=== PATIENT | male | born 1970 | race African-American/Black ===

== ENCOUNTER 2018-08-23 19:31 | Emergency (ER) | payer SELFPAY ==
--- NOTE | 2018-08-23 22:03 | RAD ---
LEFT ELBOW FOUR VIEWS: HISTORY: Drug by car with left arm pain. COMPARISON: None. FINDINGS: Four views of the left elbow show no evidence of acute fracture or dislocation. No elbow effusion is seen. No degenerative changes are present. IMPRESSION: No evidence of acute osseous abnormality. POS: C
[2018-08-23] MEDS ORDERED: Bacitracin 1 PK ONE (22:30)
== END 2018-08-23 22:48 | disposition home or self-care (01) ==
LOC: ERS 19:31
DX: S40.021A Contusion of right upper arm, initial encounter (principal); Z79.899 Other long term (current) drug therapy; V89.2XXA Person injured in unspecified motor-vehicle accident, traffic, initial encounter

== ENCOUNTER 2020-01-03 16:46 | Observation (INO) | payer OTHER, SELFPAY ==
[~2020-01-03 16:46] MED LIST: Iopamidol-370 76% 500 ML 1 ML ONE
[2020-01-03 18:03] LABS: #Eosinphils 0.2 thou/uL (0.0-0.7); #Lymphocytes 2.5 thou/uL (1.20-3.40); #Monocytes 0.7 thou/uL (0.11-0.59); #Neutrophils 3.9 thou/uL (1.40-6.50); %Basophils 0.6 % (0.0-1.0); %Eosinophils 2.9 % (0.0-10.0); %Monocytes 9.6 % (0.0-10.0); Hemoglobin 16.2 g/dL (14.0-18.0); Mean Corpuscular HGB CONC 31.8 g/dL (32.0-36.0); Mean Corpuscular Hemoglobin 27.4 pg (27.0-31.0); Mean Corpuscular Volume 86.3 fL (78.0-98.0); Mean Platelet Volume 7.5 fL (7.4-10.4); Platelet Count 320 thou/uL (130-400); Red Blood Cell (RBC) Count 5.92 mill/uL (4.70-6.10); White Blood Cell (WBC) Count 7.4 thou/uL (4.8-10.8)
[2020-01-03 18:23] LABS: ALT (SGPT) 14 U/L (8-55); AST (SGOT) 18 U/L (5-34); Alkaline Phosphatase 65 U/L (40-110); Anion Gap 12 mmol/L (10-20); BUN (Urea Nitrogen) 12 mg/dL (8.9-20.6); Bilirubin, Total 1.2 mg/dL (0.2-1.2); CK (CPK) 195 U/L (30-200); Calc. Creatinine Clearance 0 mL/min (70-130); Calcium 9.3 mg/dL (7.8-10.44); Carbon Dioxide 28 mmol/L (22-29); Chloride 103 mmol/L (98-107); Estimated GFR-MDRD 70; Globulin 4.1 g/dL (2.4-3.5); Glucose 92 mg/dL (70-105); Potassium 4.2 mmol/L (3.5-5.1); Protein, Total 8.1 g/dL (6.0-8.3); Sodium 139 mmol/L (136-145)
--- NOTE | 2020-01-03 18:33 | RAD ---
PORTABLE CHEST 01/03/20 HISTORY: Shortness of breath. Lungs are clear. Heart and mediastinum appear normal. IMPRESSION: No acute process. POS: AGW
--- NOTE | 2020-01-03 18:43 | CT ---
CT ANGIOGRAM THORAX WITH CONTRAST: (CTA pulmonary angiogram) DATE: 01/03/2020 HISTORY: 49-year-old male with dyspnea TECHNIQUE: IV injection of iodinated contrast. Scan acquisition timing attempted to coincide with iodinated contrast bolus reaching maximal density in pulmonary arteries. 3-D MIP reconstructions. FINDINGS: Pulmonary thromboembolism: None. Lungs: No consolidation or edema. Tiny 5 x 3 mm right middle lobe pulmonary nodule. Otherwise lungs a re clear. Pneumothorax: None. Pleural effusion: None. Heart: No cardiomegaly or pericardial effusion. Thoracic aorta: No aneurysm or dissection. Mediastinum: A very large number of tiny soft tissue density nodules ranging in size from approximate ly 2 mm up to 8 mm, throughout the prevascular space. IMPRESSION: 1. No pulmonary thromboembolism. 2. An unusual finding of innumerable tiny nodules throughout the prevascular space of the anterior me diastinum of unknown etiology and significance. The appearance is not typical for lymphadenopathy or thymic rebound tissue. Recommend follow-up chest CT in 3-6 months.
[2020-01-03 18:45] LABS: CKMB 2.5 ng/mL (0-6.6)
[2020-01-03] MEDS ORDERED: Ondansetron ODT 4 MG TAB SL PRN (22:15)
[2020-01-03] MEDS ORDERED: Ondansetron PF 4 MG/2 ML Vial IVP PRN (22:15)
[2020-01-03] MEDS ORDERED: Acetaminophen 325 MG TAB PO PRN ×2 (22:15→22:51)
[2020-01-03 22:30] VITALS: BMI 36.7
[2020-01-03] MEDS ORDERED: Aspirin 325 MG TAB PO SCH (22:30)
[2020-01-03] MEDS ORDERED: Acetaminophen 650 MG Suppository PR PRN (22:51)
--- NOTE | 2020-01-03 23:09 | PDOC.HHP ---
Hospitalist HPI - History of Present Illness History of Present Illness: ADMISSION DATE: 01/03/2020 TIME OF ASSESSMENT: 2200 PRIMARY CARE PHYSICIAN: None CHIEF COMPLAINT: Shortness of breath HPI: Patient is a 49-year-old gentleman who presents to the emergency department with complaints of shortness of breath on exertion for the last 3 weeks. He reports difficulty with orthopnea and at times wakes up feeling as if he cannot catch his breath. He is more comfortable when his head is elevated. Denies any cough or hemoptysis. No chest pain, palpitations or lower extremity swelling. No history of asthma or COPD. Denies any tobacco use. Has not had any symptoms like this in the past. ROS: Denies having any fevers chills or sweats. No nausea or vomiting. Denies any abdominal pain or cramping. No bowel changes or urinary symptoms. Reports a normal appetite. All other review systems apart from what is mentioned above in HPI is negative. ED COURSE: In the emergency department he had an EKG done which showed normal sinus rhythm. Heart rate 81. No ST changes or T wave abnormalities. He had a chest x-ray done which showed no acute process. CT angiogram of the chest was done showing no evidence of PE. He was incident ally found to have innumerable tiny nodules throughout the prevascular space of the anterior mediastinum of unknown etiology and significance. Per report the appearance is not typical for lymphadenopathy or thymic rebound tissue. Tiny 5 x 3 mm right middle lobe pulmonary nodule. Recommended follow-up chest CT in 3 to 6 months. Laboratory studies showed a normal full blood count. Sodium of 139, potassium 4.2, BUN 12, creatinine 1.32, GFR 70, glucose 92, LFTs normal. CK 195. CK-MB 2.5. Troponin 0 0.055. BNP negative. 325 mg of aspirin ordered in the emergency department but not given. He was given 1 L of normal saline. PAST MEDICAL HISTORY: 1. Hypertension 2. History of TIA PAST SURGICAL HISTORY: Left hand surgery SOCIAL HISTORY: Patient is still incarcerated. Denies any tobacco use alcohol consumption or drug use. FAMILY HISTORY: Noncontributory ALLERGIES: No known drug allergies CURRENT MEDICATIONS: None. - Exam General Appearance: NAD (resting comfortably in bed), awake alert General - other findings: VS: Temp 98.2, HR 89, RR 18, O2 sat 98% on room air, BP 144/100. Eye: PERRL, anicteric sclera ENT: normocephalic atraumatic, no oropharyngeal lesions, moist mucosa Neck: supple, no lymphadenopathy Heart: RRR, normal peripheral pulses Respiratory: CTAB, no wheezes, no rales, no ronchi, normal chest expansion Gastrointestinal: soft, non-tender, non-distended, normal bowel sounds, no guarding, no rigidity Extremities: no cyanosis, no clubbing, no edema Skin: normal turgor, no lesions, no rashes Neurological: cranial nerve grossly intact, normal sensation to touch, no weakness Musculoskeletal: normal tone, normal strength, no muscle wasting Psychiatric: normal affect, normal behavior, A&O x 3, oriented to person Hospitalist Results - Labs Result Diagrams: 01/03/20 17:44 01/03/20 17:44 Lab results: WBC 7.4 thou/uL (4.8-10.8) 01/03/20 17:44 Hgb 16.2 g/dL (14.0-18.0) 01/03/20 17:44 Hct 51.1 % (42.0-52.0) 01/03/20 17:44 MCV 86.3 fL (78.0-98.0) 01/03/20 17:44 Plt Count 320 thou/uL (130-400) 01/03/20 17:44 Neutrophils % 53.0 % (42.0-75.0) 01/03/20 17:44 Sodium 139 mmol/L (136-145) 01/03/20 17:44 Potassium 4.2 mmol/L (3.5-5.1) 01/03/20 17:44 Chloride 103 mmol/L (98-107) 01/03/20 17:44 Carbon Dioxide 28 mmol/L (22-29) 01/03/20 17:44 BUN 12 mg/dL (8.9-20.6) 01/03/20 17:44 Creatinine 1.32 mg/dL (0.7-1.3) H 01/03/20 17:44 Glucose 92 mg/dL (70-105) 01/03/20 17:44 Calcium 9.3 mg/dL (7.8-10.44) 01/03/20 17:44 Total Bilirubin 1.2 mg/dL (0.2-1.2) 01/03/20 17:44 AST 18 U/L (5-34) 01/03/20:44 ALT 14 U/L (8-55) 01/03/20 17:44 Alkaline Phosphatase 65 U/L (40-110) 01/03/20 17:44 Creatine Kinase 195 U/L (30-200) 01/03/20: CK-MB (CK-2) 2.5 ng/mL (0-6.6) 01/03/20:44 Troponin I 0.055 ng/mL (< 0.028) H 01/03/20:44 B-Natriuretic Peptide Less than 10.0 pg/mL (0-100) 01/03/20: Serum Total Protein 8.1 g/dL (6.0-8.3) 01/03/20: Albumin 4.0 g/dL (3.5-5.0) 01/03/20:44 Hospitalist H&P A/P - Problem (1) Shortness of breath on exertion Code(s): R06.02 - SHORTNESS OF BREATH Status: Acute Assessment and Plan: Monitor O2 sats. No sob at rest. BNP normal however patient is morbidly obese, therefore unreliable. Echo ordered. (2) Orthopnea Code(s): R06.01 - ORTHOPNEA Status: Acute Assessment and Plan: As mentioned Echo ordered to assess for possible HF. Would benefit from outpatient sleep study to assess for sleep apnea. (3) Elevated troponin Code(s): R77.8 - OTHER SPECIFIED ABNORMALITIES OF PLASMA PROTEINS Status: Acute Assessment and Plan: Continue to trend troponins. Denies any chest pain. Could be associated with HF. Continue aspirin. (4) ANTHONY (acute kidney injury) Code(s): N17.9 - ACUTE KIDNEY FAILURE, UNSPECIFIED Status: Acute Assessment and Plan: Has received 1 L of NS in the ED. Reassess renal function in AM. Continue gentle hydration, given CTA done. (5) Morbid obesity Code(s): E66.01 - MORBID (SEVERE) OBESITY DUE TO EXCESS CALORIES Status: Chronic (6) History of TIA (transient ischemic attack) Code(s): Z86.73 - PRSNL HX OF TIA (TIA), AND CEREB INFRC W/O RESID DEFICITS Status: Chronic Assessment and Plan: Continue Aspirin. (7) Abnormal CT of the chest Code(s): R93.89 - ABNORMAL FINDINGS ON DX IMAGING OF OTH BODY STRUCTURES Status: Acute Assessment and Plan: Innumerable nodules in prevascular space of anterior mediastinum. Repeat CT Chest 3-6 months. - Plan Plan: GI prophylaxis with Famotidine. DVT Prophylaxis: Lovenox 40 mg SC (Ambulatory of incarcerated therefore handcuffed and will not be mobile during admission) CODE STATUS FULL Case discussed with Dr. Rios who agrees with plan as above.
[2020-01-03 23:33] LABS: Troponin I 0.088 ng/mL (< 0.028)
[2020-01-04 02:29] LABS: #Eosinphils 0.3 thou/uL (0.0-0.7); #Lymphocytes 2.7 thou/uL (1.20-3.40); #Monocytes 0.6 thou/uL (0.11-0.59); %Basophils 0.4 % (0.0-1.0); %Eosinophils 4.2 % (0.0-10.0); %Lymphocytes 34.9 % (21.0-51.0); %Monocytes 7.7 % (0.0-10.0); %Neutrophils 52.8 % (42.0-75.0); Hemoglobin 14.7 g/dL (14.0-18.0); Mean Corpuscular HGB CONC 32.8 g/dL (32.0-36.0); Mean Corpuscular Hemoglobin 28.2 pg (27.0-31.0); Mean Corpuscular Volume 86.1 fL (78.0-98.0); Mean Platelet Volume 7.2 fL (7.4-10.4); Platelet Count 321 thou/uL (130-400); RBC Distribution Width 12.8 % (11.5-14.5); Red Blood Cell (RBC) Count 5.23 mill/uL (4.70-6.10); White Blood Cell (WBC) Count 7.6 thou/uL (4.8-10.8)
[2020-01-04 02:34] LABS: Troponin I 0.087 ng/mL (< 0.028)
[2020-01-04 02:36] LABS: Anion Gap 11 mmol/L (10-20); BUN (Urea Nitrogen) 12 mg/dL (8.9-20.6); Calc. Creatinine Clearance 92 mL/min (70-130); Calcium 8.7 mg/dL (7.8-10.44); Carbon Dioxide 26 mmol/L (22-29); Cardiac Risk 6.9 (Less than 4.5); Chloride 104 mmol/L (98-107); Cholesterol 200 mg/dl (< 200 Desired); Estimated GFR-MDRD 63; Glucose 128 mg/dL (70-105); HDL Cholesterol 29 mg/dL (>60 Neg Risk); LDL Cholesterol, Calculated 141 mg/dL; Potassium 3.9 mmol/L (3.5-5.1); Sodium 137 mmol/L (136-145); Triglycerides 149 mg/dL (Less than 150)
[2020-01-04 05:42] LABS: SARS-CoV-2 MS2 Positive; SARS-CoV-2 N Gene Negative; SARS-CoV-2 S Gene Negative; SARS-CoV-2 by NAA Not Detected (NotDetected); SARS-CoV-2 orf1ab Negative
[2020-01-04] MEDS ORDERED: Famotidine 20 MG TAB PO SCH (09:00)
[2020-01-04] MEDS ORDERED: Aspirin 81 mg Enteric Coated Tablet PO SCH (09:00)
[2020-01-04] MEDS ORDERED: FLU VACC QS2020-21(6MOS UP)/PF 60 MCG/0.5 ML SYRINGE IM ONE (09:00)
[2020-01-04] MEDS ORDERED: Regadenoson 0.4 MG/5 ML SYRINGE ONE (12:31)
[2020-01-04 12:52] VITALS: BP 142/79; TEMP 98
--- NOTE | 2020-01-04 13:33 | NM ---
Exam: [facility] cardiac stress with EF and wall motion HISTORY: Elevated troponin TECHNIQUE: Patient was ministered 10.10 mCi of technetium 9M sestamibi for stress imaging. Patient wa s administered 30.9 cm of technetium sestamibi for stress imaging. Cardiac gating is performed FINDINGS: Homogeneous distribution of the radiotracer in the left ventricle on the stress attenuation correctio n images. No reversibility or fixed defect 3 times a day is 1.26 End-diastolic volume is 98 mL End-systolic volume is 46 mL Cardiac gating: Normal wall motion and thickening. The degree % ejection fraction. IMPRESSION: No reversibility or fixed defect. 2. 53 % ejection fraction.
--- NOTE | 2020-01-04 14:32 | PDOC.DS.DS ---
Provider - Provider Date of Admission: 01/03/20 19:59 Date of Discharge: 01/04/20 Admitting Provider: Cheyenne Cuadra MD Primary Care Physician: NO PCP PROVIDER Course - Hospital Course Hospital Course: Discharge diagnosis: 1. Shortness of breath 2. no evidence of congestive heart failure 3. Nodules throughout the prevascular space of the anterior mediastinum of unknown etiology and significance. Radiologist recommends follow-up chest CT in 3 to 6 months. 4. Dyslipidemia 5. Chronic kidney disease stage III Hospital course: Mr. Horner is a pleasant 49-year-old gentleman who was admitted to the hospital on January 03, 2020 for shortness of breath on exertion. BNP was less than 10. 2D echocardiogram showed left ventricle ejection fraction of 60 to 65% and normal right ventricular size and function. He had mild mitral regurgitation and mild tricuspid regurgitation. He had indeterminate troponin. He underwent nuclear stress test, which showed left ventricle ejection fraction of 53% and no reversibility or fixed defect. CT angiogram of the chest showed nodule throughout the prevascular space of the anterior mediastinum of unknown etiology and significance. Radiologist recommended follow-up CT scan of the chest in 3 to 6 months. Patient did have elevated TID of 1.26 on the stress test. I discussed this case with the wool and pelt grader on-call. They will be happy to follow-up with him as outpatient. Fasting lipid profile showed triglycerides 149, cholesterol 200, LDL cholesterol 141 and HDL cholesterol 29. Creatinine was 1.44 on the day of discharge. Resuscitation Status: 01/03/20 22:51 Resuscitation Status Routine Co-Sign Provider: Resuscitation Status: FULL: Full Resuscitation - Labs Lab Results: 01/04/20 02:03 01/04/20 02:03 Abnormal Lab Results - Last 48 hrs 01/03/20 17:44: Creatinine 1.32 H, Globulin 4.1 H, Albumin/Globulin Ratio 1.0 L 01/03/20 17:44: Troponin I 0.055 H 01/03/20 17:44: MCHC 31.8 L, Monocytes # 0.7 H 01/03/20 23:01: Troponin I 0.088 H 01/04/20 02:03: Troponin I 0.087 H 01/04/20 02:03: Creatinine 1.44 H, Cholesterol 200 H 01/04/20 02:03: MPV 7.2 L, Monocytes # 0.6 H - Physical Exam Vitals: Vital Signs (12 hours) Temp Pulse Resp BP Pulse Ox 01/04/20 13:21 98 01/04/20 12:45 98.0 F 90 16 142/79 H 98 01/04/20 07:53 97.5 F L 80 16 126/88 94 L 01/04/20 04:00 97.3 F L 77 18 122/77 95 Weight Weight 234 lb 8 oz Physical Exam: The patient was seen and examined on the day of discharge. Patient denies chest pain or shortness of breath. Vital signs are stable. S1 and S2 are heard. Lungs are clear to auscultation bilaterally. Plan - Discharge Medications Home Medications: Medication Instructions Recorded Confirmed Type No Known 01/04/20 01/04/20 History Allergies: No Known Drug Allergies Allergy (Verified 01/03/20 22:21) - Discharge Instructions Discharge Instructions:: Follow-up with primary care provider for CT scan of the chest in 3 to 6 months to evaluate for nodules seen on chest CT scan during this hospitalization. Follow-up with primary care provider for management of dyslipidemia. Follow-up with primary care provider to arrange for sleep study as outpatient. Follow-up with a wool and pelt grader as outpatient for elevated TID on stress test. Activity:: Activity as Tolerated Nourishment:: Heart Healthy Diet - Follow up Plan Referrals: PROVIDER,NO PCP [Primary Care Provider] - 3 Days Disposition: HOME Quality - Care Measures CORE MEASURES:: N/A
== END 2020-01-04 16:01 ==
LOC: EEVIPCON 16:46 → ERS 16:46 → 2SE 19:59
PROVIDERS: ADMIT Internal Medicine; ATTEND Internal Medicine
DX: R06.02 Shortness of breath (principal); R93.89 Abnormal findings on diagnostic imaging of other specified body structures; E78.5 Hyperlipidemia, unspecified; I12.9 Hypertensive chronic kidney disease with stage 1 through stage 4 chronic kidney disease, or unspecified chronic kidney disease; N18.30 Chronic kidney disease, stage 3 unspecified; N17.9 Acute kidney failure, unspecified; R06.01 Orthopnea; R77.8 Other specified abnormalities of plasma proteins; J45.909 Unspecified asthma, uncomplicated; E66.01 Morbid (severe) obesity due to excess calories; Z68.36 Body mass index [BMI] 36.0-36.9, adult; Z86.73 Personal history of transient ischemic attack (TIA), and cerebral infarction without residual deficits; Z20.828 Contact with and (suspected) exposure to other viral communicable diseases
CPT/HCPCS: 36415; 71045; 71275; 78452; 80048; 80053; 80061; 82550; 82553; 83880; 84484; 85025; 87635; 90471; 90662; 93005; 93017; 93306; 94760; A9500; G0008; G0378; J2785; Q9967; U0003

== ENCOUNTER 2021-11-29 17:56 | Emergency (ER) | payer OTHER, SELFPAY ==
[2021-11-29] MEDS ORDERED: HYDROcodone/Acetaminophen 5/325 mg Tablet ONE (19:08)
== END 2021-11-29 20:35 | disposition home or self-care (01) ==
LOC: ERS 17:56
DX: S76.012A Strain of muscle, fascia and tendon of left hip, initial encounter (principal); S86.912A Strain of unspecified muscle(s) and tendon(s) at lower leg level, left leg, initial encounter; S39.012A Strain of muscle, fascia and tendon of lower back, initial encounter; V43.52XA Car driver injured in collision with other type car in traffic accident, initial encounter; I10 Essential (primary) hypertension; J45.909 Unspecified asthma, uncomplicated
CPT/HCPCS: 72100